=== PATIENT | female | born 1950 | race Caucasian/White ===

== ENCOUNTER 2021-03-10 11:08 | Emergency (ER) | payer MEDICARE, OTHER ==
[~2021-03-10] VITALS: Ht 160 cm; Wt 67.9 kg
[2021-03-10 11:51] VITALS: BP 138/71
== END 2021-03-10 14:58 | disposition home or self-care (01) ==
LOC: ED 14:05
DX: R51.9 Headache, unspecified (principal); R00.1 Bradycardia, unspecified
CPT/HCPCS: 93005; 99283